=== PATIENT | male | born 1965 | race African-American/Black ===

== ENCOUNTER 2022-10-03 11:19 | Inpatient (IN) | payer OTHER ==
[2022-10-03 12:06] VITALS: BMI 20.9
[2022-10-03] MEDS ORDERED: BISMUTH SUBSALICYLATE 524 MG/30 ML PO PRN (13:14)
[2022-10-03] MEDS ORDERED: NICOTINE 10 MG CARTRIDGE (INHALER) IH PRN (13:14)
[2022-10-03] MEDS ORDERED: IBUPROFEN 600 MG TABLET (FP) PO PRN (13:14)
[2022-10-03] MEDS ORDERED: hydrOXYzine PAMOATE 25 MG CAPSULE (FP) PO PRN (13:14)
[2022-10-03] MEDS ORDERED: MAGNESIUM HYDROX 2400MG/30ML ORAL SUSPENSION 30 ML CUP PO PRN (13:14)
[2022-10-03] MEDS ORDERED: chlordiazePOXIDE HCL 25 MG CAPSULE PO PRN (13:14)
[2022-10-03] MEDS ORDERED: POLYETHYLENE GLYCOL (HEALTHYLAX) 3350 17 GM PACKET PO PRN (13:14)
[2022-10-03] MEDS ORDERED: LOPERAMIDE HCL 2 MG CAPSULE PO PRN (13:14)
[2022-10-03] MEDS ORDERED: MAG HYDROX/AL HYDROX/SIMETH 30 ML UNIT-DOSE CUP PO PRN (13:14)
[2022-10-03] MEDS ORDERED: ACETAMINOPHEN 325 MG TABLET (FP) PO PRN ×2 (13:14)
[2022-10-03] MEDS ORDERED: BENZOCAINE/MENTHOL (CHLORASEPTIC ) LOZENGE MM PRN (13:14)
[2022-10-03] MEDS ORDERED: DICYCLOMINE HCL 10 MG CAPSULE PO PRN (13:14)
[2022-10-03] MEDS ORDERED: ONDANSETRON *ODT* 4 MG TABLET SL PRN (13:14)
[2022-10-03] MEDS ORDERED: IBUPROFEN 400 MG TABLET (FP) PO PRN (13:14)
[2022-10-03] MEDS ORDERED: NALOXONE HCL (KLOXXADO) 8 MG SPRAY NS PRN (13:14)
[2022-10-03] MEDS: chlordiazePOXIDE HCL 25 MG CAPSULE PO SCH ×2 (16:51→22:01)
[2022-10-03 17:04] LABS: HEMATOCRIT 36.1 % (35.4-49); HEMOGLOBIN 11.3 GM/dL (11.7-16.9); MCH 31.4 pg (25.7-33.7); MCHC 31.3 g/dl (32.0-35.9); MEAN CELL VOLUME 100.4 fl (80-96); MEAN PLT VOLUME 8.7 fl (7.5-11.1); PLATELET COUNT 127 10^3/uL (134-434); WHITE BLOOD COUNT 2.8 K/mm3 (4.0-10.0)
[2022-10-03 17:16] LABS: CALCIUM 8.9 mg/dL (8.5-10.1)
[2022-10-03 17:17] LABS: ALBUMIN 4.2 g/dl (3.4-5.0)
[2022-10-03 17:20] LABS: CREATININE 0.9 mg/dL (0.55-1.3)
[2022-10-03 17:21] LABS: BILIRUBIN,TOTAL 0.8 mg/dL (0.2-1)
[2022-10-03] MEDS: METHOCARBAMOL 500 MG TABLET PO PRN (18:01)
[2022-10-03] MEDS: ASPIRIN COATED 81 MG TABLET.EC PO SCH (18:10)
[2022-10-03] MEDS ORDERED: THIAMINE HCL 100 MG TABLET (FP) PO SCH (22:00)
[2022-10-03] MEDS ORDERED: MELATONIN 5 MG TABLETS PO SCH (22:00)
[2022-10-04] MEDS: chlordiazePOXIDE HCL 25 MG CAPSULE PO SCH ×2 (05:15→10:22)
[2022-10-04 09:14] VITALS: BP 143/93; PULSE 83; RESP 18; TEMP 97.2
[2022-10-04] MEDS ORDERED: NICOTINE 14 MG/24 HOURS TOPICAL PATCH TD SCH (10:00)
[2022-10-04] MEDS ORDERED: PRENATAL VITAMINS W/ FOLIC ACID TABLET (FP) PO SCH (10:00)
[2022-10-04] MEDS ORDERED: LACTULOSE 20 GM/30 ML UDC (FOR ORAL USE ONLY) PO SCH (10:00)
[2022-10-04] MEDS: ASPIRIN COATED 81 MG TABLET.EC PO SCH (10:21)
[2022-10-04] MEDS: METHOCARBAMOL 500 MG TABLET PO PRN (10:21)
[2022-10-04] MEDS ORDERED: LORazepam 1 MG TABLET PO PRN (11:00)
[2022-10-04] MEDS ORDERED: LORazepam 2 MG TABLET PO SCH (17:00)
[2022-10-05] MEDS ORDERED: chlordiazePOXIDE HCL 25 MG CAPSULE PO SCH (05:00)
[2022-10-06] MEDS ORDERED: chlordiazePOXIDE HCL 10 MG CAPSULE PO PRN
[2022-10-06] MEDS ORDERED: chlordiazePOXIDE HCL 10 MG CAPSULE PO SCH (05:00)
[2022-10-06] MEDS ORDERED: LORazepam 1 MG TABLET PO SCH (05:00)
[2022-10-07] MEDS ORDERED: LORazepam 0.5 MG TABLET PO PRN
[2022-10-07] MEDS ORDERED: chlordiazePOXIDE HCL 10 MG CAPSULE PO SCH (05:00)
[2022-10-07] MEDS ORDERED: LORazepam 0.5 MG TABLET PO SCH (05:00)
[2022-10-08] MEDS ORDERED: LORazepam 0.5 MG TABLET PO ONE (05:00)
[2022-10-08] MEDS ORDERED: chlordiazePOXIDE HCL 10 MG CAPSULE PO ONE (05:00)
== END 2022-10-04 13:55 | disposition left against medical advice (07) | DRG 770 ==
LOC: YASAS 11:19 → Y6N 15:34
PROVIDERS: ADMIT Allergy & Immunology; ATTEND Surgery
PROC: HZ2ZZZZ Detoxification Services for Substance Abuse Treatment (ICD-10-PCS; principal; 2022-10-03)
DX: F10.230 Alcohol dependence with withdrawal, uncomplicated (principal); F17.210 Nicotine dependence, cigarettes, uncomplicated; F10.282 Alcohol dependence with alcohol-induced sleep disorder; D72.819 Decreased white blood cell count, unspecified; G47.00 Insomnia, unspecified; I10 Essential (primary) hypertension; M54.50 Low back pain, unspecified; G89.29 Other chronic pain; R73.9 Hyperglycemia, unspecified; R74.8 Abnormal levels of other serum enzymes; R79.89 Other specified abnormal findings of blood chemistry; R26.89 Other abnormalities of gait and mobility; Z99.89 Dependence on other enabling machines and devices; Z28.310 Unvaccinated for COVID-19; Z28.9 Immunization not carried out for unspecified reason
CPT/HCPCS: 36415; 80053; 82140; 83036; 85027; 86780; 93005; 93010